=== PATIENT | female | born 1965 | race Caucasian/White ===

== ENCOUNTER 2019-08-14 19:55 | Emergency (ER) | payer BC, OTHER ==
[~2019-08-14] VITALS: Ht 157.5 cm; Wt 150.0 kg
[~2019-08-14 19:55] MED LIST: ESCI20TA PO; LEVE500T8 PO; METO50TA82 PO
[2019-08-14 20:13] VITALS: BP 142/73
--- NOTE | 2019-08-14 20:15 | NUR ---
PT REFUSING TO GET ON SCALE IN TRIAGE
--- NOTE | 2019-08-14 20:31 | NUR ---
PT AMBULATES TO ROOM WITH STEADY GAIT. PT IN GOWN IN [facility]; AWAITING ERP.
[2019-08-14] MEDS ORDERED: DIPHENHYDRAMINE 25 MG CAPSULE PO ONE (21:30)
[2019-08-14] MEDS ORDERED: DIPHENHYDRAMINE 25 MG CAPSULE ONE (21:30)
[2019-08-14] MEDS ORDERED: KETOROLAC 30 MG/1 ML ONE (21:30)
[2019-08-14] MEDS ORDERED: DEXAMETHASONE 4 MG TABLET PO ONE (21:30)
[2019-08-14] MEDS ORDERED: KETOROLAC 30 MG/1 ML IM ONE (21:30)
[2019-08-14] MEDS ORDERED: DEXAMETHASONE 4 MG TABLET ONE (21:30)
--- NOTE | 2019-08-14 21:35 | NUR ---
PT MEDICATED PER MAR FOR PAIN. PT RESTING COMFORTABLY IN [facility] AT THIS TIME WITH CALL LIGHT WITHIN REACH.
[2019-08-14 21:44] LABS: RAPID INFLUENZA A Negative (Negative); RAPID INFLUENZA B POSITIVE (Negative)
--- NOTE | 2019-08-14 22:27 | NUR ---
PT D/C WITH D/C SUMMARY AND SCRIPTS. ALL QUESTIONS ANSWERED. PT AMBULATES TO REGISTRATION DESK WITH STEADY GAIT FOR D/C HOME. PT DENIES ANY OTHER NEEDS PERTAINING TO THIS VISIT.
== END 2019-08-14 22:29 | disposition home or self-care (01) ==
LOC: ED 22:20
DX: J10.1 Influenza due to other identified influenza virus with other respiratory manifestations (principal); G43.919 Migraine, unspecified, intractable, without status migrainosus; H92.09 Otalgia, unspecified ear
CPT/HCPCS: 71045; 87400; 96372; 99284; J1885; Q0163

== ENCOUNTER 2020-03-17 15:37 | Observation (INO) | payer BC ==
[~2020-03-17] VITALS: Ht 157.5 cm; Wt 154.1 kg
[2020-03-17 16:37] LABS: BASOPHILS # (AUTO) 0.02 x10^3/uL (0-0.1); BASOPHILS % (AUTO) 0 % (0-1); EOSINOPHILS % (AUTO) 1 % (1-7); LYMPHOCYTES # (AUTO) 1.41 x10^3/uL (1-3.4); LYMPHOCYTES % (AUTO) 18 % (22-44); MD NO; MEAN CORPUSCULAR HEMOGLOBIN 27.2 pg (27.0-34.8); MEAN CORPUSCULAR HGB CONC 32.4 g/dL (32.4-35.8); MEAN CORPUSCULAR VOLUME 83.9 fL (80-100); MEAN PLATELET VOLUME 8.9 fL (7.4-10.4); MONOCYTES # (AUTO) 0.45 x10^3/uL (0.2-0.8); MONOCYTES % (AUTO) 6 % (2-9); NEUTROPHILS # (AUTO) 6.04 x10^3/uL (1.8-6.8); NEUTROPHILS % (AUTO) 75 % (42-75); PLATELET COUNT 219 x10^3/uL (130-400); RED BLOOD COUNT 4.85 x10^6/uL (3.82-5.3); RED CELL DISTRIBUTION WIDTH 14.6 % (9.6-15.2)
[2020-03-17 16:44] LABS: ALBUMIN 3.2 g/dL (3.4-5.0); ANION GAP 9 mmol/L (5-15); CALCIUM 8.5 mg/dL (8.5-10.1); CHLORIDE 107 mmol/L (98-107); CREATININE 0.93 mg/dL (0.55-1.02)
[2020-03-17 16:48] LABS: TROPONIN I < 0.015 ng/mL (0.000-0.045)
--- NOTE | 2020-03-17 17:04 | NUR ---
PT RESTING IN [facility] ON MONITOR, AWAITING LAB AND RAD RESULTS
[2020-03-17] MEDS ORDERED: FLUT16SP24 NAS (17:39)
--- NOTE | 2020-03-17 18:15 | NUR ---
DIET TRAY ORDERED
[2020-03-17] MEDS ORDERED: OXYcodone/APAP 5/325MG TABLET PO PRN (18:30)
[2020-03-17] MEDS ORDERED: ONDANSETRON ODT 4 MG PO PRN (18:30)
[2020-03-17] MEDS ORDERED: morphine SULFATE 10 MG/ML, 1ML IVPush PRN (18:30)
[2020-03-17] MEDS ORDERED: ENALAPRILAT 1.25 MG/ML, 2ML IVPush PRN (18:30)
[2020-03-17] MEDS ORDERED: LABETALOL 5MG/ML, 20ML IVPush PRN (18:30)
[2020-03-17] MEDS ORDERED: SUMATRIPTAN 25 MG TABLET PO PRN (18:30)
[2020-03-17] MEDS ORDERED: DOCUSATE 100 MG CAPSULE PO PRN (18:30)
[2020-03-17] MEDS ORDERED: NITROGLYCERIN 0.4 MG BOTTLE (25 TABS) SL PRN (19:00)
[2020-03-17] MEDS ORDERED: ENOXAPARIN 40 MG/0.4 ML SQ SCH (20:00)
[2020-03-17 20:17] VITALS: BP 122/77
[2020-03-17] MEDS ORDERED: IBUP-1624 PO (20:26)
[2020-03-17] MEDS: ACETAMINOPHEN 325 MG TABLET PO PRN (20:45)
[2020-03-17] MEDS ORDERED: MELATONIN 5 MG TABLET PO PRN (21:30)
[2020-03-17] MEDS ORDERED: MAGNESIUM SULFATE/D5W 100 ML IV ONE (21:30)
[2020-03-17 22:35] VITALS: BP 107/67
[2020-03-17] MEDS: METOPROLOL TARTRATE 50 MG TAB PO SCH (22:55)
[2020-03-17] MEDS: FLUTICASONE NASAL SPRAY 16GM NAS SCH (23:01)
[2020-03-17 23:58] LABS: TROPONIN I < 0.015 ng/mL (0.000-0.045)
[2020-03-18 00:20] VITALS: BP 118/75
[2020-03-18 05:49] LABS: BASOPHILS # (AUTO) 0.02 x10^3/uL (0-0.1); BASOPHILS % (AUTO) 0 % (0-1); EOSINOPHILS # (AUTO) 0.11 x10^3/uL (0-0.4); EOSINOPHILS % (AUTO) 2 % (1-7); LYMPHOCYTES % (AUTO) 28 % (22-44); MD NO; MEAN CORPUSCULAR HEMOGLOBIN 27.2 pg (27.0-34.8); MEAN CORPUSCULAR HGB CONC 32.6 g/dL (32.4-35.8); MEAN CORPUSCULAR VOLUME 83.5 fL (80-100); MEAN PLATELET VOLUME 9.1 fL (7.4-10.4); MONOCYTES # (AUTO) 0.48 x10^3/uL (0.2-0.8); MONOCYTES % (AUTO) 8 % (2-9); NEUTROPHILS % (AUTO) 61 % (42-75); PLATELET COUNT 180 x10^3/uL (130-400); RED BLOOD COUNT 4.47 x10^6/uL (3.82-5.3); RED CELL DISTRIBUTION WIDTH 14.8 % (9.6-15.2)
[2020-03-18 05:52] LABS: CHLORIDE 105 mmol/L (98-107)
[2020-03-18 05:58] LABS: ALANINE AMINOTRANSFERASE 27 U/L (12-78); ANION GAP 10 mmol/L (5-15); CALCIUM 8.9 mg/dL (8.5-10.1); CHOLESTEROL, TOTAL 162 mg/dL (140-239); CREATININE 0.87 mg/dL (0.55-1.02); TRIGLYCERIDES 202 mg/dL (50-200); TROPONIN I < 0.015 ng/mL (0.000-0.045); VLDL CHOLESTEROL 40 mg/dL (0-25)
[2020-03-18 06:03] LABS: ALKALINE PHOSPHATASE 75 U/L (45-117); BILIRUBIN,TOTAL 0.7 mg/dL (0.2-1.0); CHOL/HDL RATIO 4.2; HDL CHOL % 24 % (28-40); HDL CHOLESTEROL (DIRECT) 39 mg/dL (40-60); LDL CHOLESTEROL,CALCULATED 83 mg/dL (54-169); LDL/HDL RATIO 2.1 (0.5-3.0); TOTAL PROTEIN 6.7 g/dL (6.4-8.2)
[2020-03-18 06:48] VITALS: BP 110/69
[2020-03-18] MEDS ORDERED: REGADENOSON 0.4 MG/5 ML SYRINGE ONE (07:58)
[2020-03-18] MEDS: METOPROLOL TARTRATE 50 MG TAB PO SCH (08:19)
[2020-03-18] MEDS ORDERED: ESCITALOPRAM 10MG TABLET PO SCH (09:00)
[2020-03-18] MEDS: ACETAMINOPHEN 325 MG TABLET PO PRN (10:39)
[2020-03-18] MEDS: FLUTICASONE NASAL SPRAY 16GM NAS SCH (11:11)
[2020-03-18 12:18] VITALS: BP 104/72
== END 2020-03-18 14:15 | disposition home or self-care (01) ==
LOC: ED 16:49 → INTOOBSV 17:11 → EDIP 17:11 → SUATTDRO 17:15 → 5SO 19:53 → DCLOUNGE 03-18 14:05
PROVIDERS: ADMIT Hospitalist; ATTEND Hospitalist
DX: R07.89 Other chest pain (principal); R00.2 Palpitations; I10 Essential (primary) hypertension; G43.909 Migraine, unspecified, not intractable, without status migrainosus; T78.40XA Allergy, unspecified, initial encounter; E66.01 Morbid (severe) obesity due to excess calories; E78.1 Pure hyperglyceridemia; E83.42 Hypomagnesemia; R73.03 Prediabetes; F32.9 Major depressive disorder, single episode, unspecified; R06.00 Dyspnea, unspecified; F19.20 Other psychoactive substance dependence, uncomplicated; F12.10 Cannabis abuse, uncomplicated; Z79.899 Other long term (current) drug therapy; Z88.0 Allergy status to penicillin; Z86.718 Personal history of other venous thrombosis and embolism; Z68.44 Body mass index [BMI] 60.0-69.9, adult; Z86.011 Personal history of benign neoplasm of the brain
CPT/HCPCS: 36415; 71045; 78452; 80048; 80053; 80061; 82040; 83036; 83735; 84100; 84443; 84484; 85025; 93005; 93017; 96365; 96372; 99285; A9502; G0378; J1650; J2785